=== PATIENT | female | born 1995 | race African-American/Black ===

== ENCOUNTER 2023-06-17 20:00 | Emergency (ER) | payer MEDICAID, OTHER ==
[~2023-06-17] VITALS: Ht 160 cm; Wt 50.0 kg
[2023-06-17 20:03] VITALS: BP 132/78; PULSE 86; RESP 16; TEMP 98.6; O2SAT 99
[2023-06-17] MEDS ORDERED: CYCL10TA21 MT (21:39)
== END 2023-06-17 22:02 | disposition home or self-care (01) ==
LOC: ER 20:47
DX: M79.604 Pain in right leg (principal); M79.605 Pain in left leg
CPT/HCPCS: 81025; 93970; 99284

== ENCOUNTER 2023-09-10 12:51 | Emergency (ER) | payer OTHER ==
[~2023-09-10] VITALS: Ht 160 cm; Wt 56.0 kg
[~2023-09-10 12:51] MED LIST: CYCL10TA21 MT
[2023-09-10 13:27] VITALS: TEMP 98.5; O2SAT 100
[2023-09-10] MEDS ORDERED: KETOROLAC 60MG/2ML VIAL IM ONE (14:00)
[2023-09-10] MEDS ORDERED: DIPHENHYDRAMINE 25MG CAPSULE PO ONE (14:00)
[2023-09-10] MEDS ORDERED: PROCHLORPERAZINE MALEATE 10MG TABLET PO ONE (14:00)
[2023-09-10 14:18] VITALS: BP 137/87; PULSE 75; RESP 16
== END 2023-09-10 22:03 | disposition left against medical advice (07) ==
LOC: ER 13:32
DX: R51.9 Headache, unspecified (principal); F10.10 Alcohol abuse, uncomplicated; Z20.822 Contact with and (suspected) exposure to COVID-19; Y90.9 Presence of alcohol in blood, level not specified
CPT/HCPCS: 99285; 87426; 87804 ×2; 96372; Q0163; Q0164; J1885; C9803